=== PATIENT | female | born 1995 | race Two or more races ===

== ENCOUNTER 2017-06-03 07:23 | Emergency (ER) | payer MEDICAID ==
[~2017-06-03] VITALS: Ht 157.5 cm; Wt 67.1 kg
[2017-06-03 07:23] VITALS: BP 116/69
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
[2017-06-03] MEDS ORDERED: Bacitracin Oint UD TOPIC ONE (07:30)
[2017-06-03] MEDS ORDERED: ROBAXIN-750750 MG PO (08:21)
[2017-06-03] MEDS ORDERED: IBUPROFEN600 MG ORAL (08:21)
[2017-06-03 08:26] VITALS: BP 120/63
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
== END 2017-06-03 08:26 | disposition home or self-care (01) ==
LOC: EDBD 07:23 → EMR 08:12
DX: S00.83XA Contusion of other part of head, initial encounter (principal); S00.81XA Abrasion of other part of head, initial encounter; V43.52XA Car driver injured in collision with other type car in traffic accident, initial encounter; Y92.410 Unspecified street and highway as the place of occurrence of the external cause
CPT/HCPCS: 70486; 99284